=== PATIENT | female | born 1965 | race Caucasian/White ===

== ENCOUNTER 2017-11-04 13:34 | Day surgery (SDC) | payer OTHER ==
[2017-11-04] MEDS ORDERED: KETOROLAC 30 MG/1 ML SDV IVP ONE (14:42)
[2017-11-04] MEDS ORDERED: NS 1,000 ML IV ONE (14:42)
[2017-11-04] MEDS ORDERED: ONDANSETRON 4 MG/2 ML VIAL IVP ONE (14:42)
[2017-11-04] MEDS ORDERED: LR 1,000 ML IV ONE (15:01)
[2017-11-04] MEDS ORDERED: KETOROLAC 30 MG/1 ML SDV ONE (15:12)
[2017-11-04] MEDS ORDERED: BUPIVACAINE/EPI 0.5% 30 ML SDV ONE (15:41)
--- NOTE | 2017-11-04 15:45 | POSTOPPROG ---
<Trey Duffy - Last Filed: 11/04/17 17:07> Post Op Note Date of Operation: 11/04/17 Surgeon: Trey Duffy Post-op Diagnosis: acute cholecystitis, umbilical hernia Procedure: laparasopic cholecystectomy, umbilical hernia with 1.7"ventralux mesh <Faviola Avila - Last Filed: 11/08/17 07:46> Post Op Note Date of Operation: 11/08/17 Surgeon: Faviola Avila Ammonia Worker: Faviola Avila Anesthesia: GET(General Endotracheal) Pre-op Diagnosis: acute cholecystitis Post-op Diagnosis: acute cholecystitis Procedure: laparasopic cholecystectomy Findings: small stones and small duct Inf/Abcess present in the surg proc area at time of surgery?: No EBL: Minimal Complications: no current complications Specimen(s): gallbladder
[2017-11-04] MEDS ORDERED: MIDAZOLAM 2 MG/2 ML VIAL ONE (15:46)
[2017-11-04] MEDS ORDERED: SCOPOLAMINE HYDROBROMIDE 1 MG/3 DAYS PATCH TD ONE ×2 (15:46→15:52)
--- NOTE | 2017-11-04 15:47 | PDANEPAE ---
ANE History of Present Illness laparoscopic cholecystectomy ANE Past Medical History - Cardiovascular History Hx Hypertension: No Hx Arrhythmias: No Hx Chest Pain: No Hx Coronary Artery / Peripheral Vascular Disease: No Hx Palpitations: No - Pulmonary History Hx COPD: No Hx Asthma/Reactive Airway Disease: No Hx Recent Upper Respiratory Infection: Yes Hx Oxygen in Use at Home: No Hx Sleep Apnea: No Pulmonary History Comment: recent URI - Neurologic History Hx Cerebrovascular Accident: Yes Neurologic History Comment: migraines - Endocrine History Hx Diabetes: No Hypothyroid: No Hyperthyroid: No - Renal History Hx Renal Disorders: No - Liver History Hx Hepatic Disorders: No - Neurological & Psychiatric Hx Hx Neurological and Psychiatric Disorders: Yes Neurological / Psychiatric History Comment: Chronic migranes - Cancer History Hx Cancer: No - Congenital Disorder History Hx Congenital Disorders: No - GI History GERD: mild (occassionally) Hx Gastrointestinal Disorders: Yes Gastrointestinal History Comment: IBS ANE Review of Systems Review of Systems: - Exercise capacity METS (RN): 4 METS ANE Patient History - Allergies Allergies/Adverse Reactions: banana [Banana] Allergy (Verified 04/16/11 09:11) MIGRAINES benzoyl peroxide Allergy (Verified 11/04/17 15:30) ALMONDS Allergy (Uncoded 04/16/11 09:10) MIGRAINES RONDON Allergy (Uncoded 04/16/11 09:10) Diarrhea HARD BEANS Allergy (Uncoded 04/16/11 09:11) MIGRAINES ORANGES Allergy (Uncoded 04/16/11 09:12) MIGRAINES tape Allergy (Uncoded 11/04/17 15:29) - NPO status NPO Since - Liquids (Date): 11/04/17 NPO Since - Liquids (Time): 09:00 NPO Since - Solids (Date): 11/04/17 NPO Since - Solids (Time): 07:00 - Anes Hx Anes Hx: post operative nausea - Smoking Hx Smoking Status: Never smoked Marijuana use: No - Alcohol Use Alcohol Use: None - Family Anes Hx Family Anes Hx: none ANE Labs/Vital Signs - Vital Signs Blood Pressure: 150/96 Heart Rate: 80 Respiratory Rate: 16 O2 Sat (%): 99 Height: 170.18 cm Weight: 91.626 kg ANE Physical Exam - Airway Neck exam: FROM Mallampati Score: Class 1 Mouth exam: normal dental/mouth exam - Pulmonary Pulmonary: clear to auscultation - Cardiovascular Cardiovascular: regular rate and rhythym - ASA Status ASA Status: II ANE Anesthesia Plan Anesthesia Plan: general endotracheal anesthesia
[2017-11-04] MEDS ORDERED: MIDAZOLAM 2 MG/2 ML VIAL IVP ONE (15:52)
[2017-11-04] MEDS ORDERED: DEXAMETHASONE 4 MG/ML VIAL ONE (16:01)
[2017-11-04] MEDS ORDERED: RANITIDINE 50 MG/2 ML VIAL ONE (16:01)
[2017-11-04] MEDS ORDERED: PROPOFOL 200 MG/20 ML VIAL ONE ×2 (16:01)
[2017-11-04] MEDS ORDERED: fentaNYL 250 MCG/5 ML INJ ONE (16:01)
[2017-11-04] MEDS ORDERED: ROCURONIUM 50 MG/5 ML VIAL ONE (16:01)
[2017-11-04] MEDS ORDERED: LABETALOL HCL 5 MG/ML 20 ML MDV ONE (16:43)
[2017-11-04] MEDS ORDERED: ONDANSETRON 4 MG/2 ML VIAL ONE (16:47)
[2017-11-04] MEDS ORDERED: LABETALOL HCL 5 MG/ML 20 ML MDV IVP PRN (16:51)
[2017-11-04] MEDS ORDERED: ACETAMINOPHEN 500 MG TAB PO PRN (16:51)
[2017-11-04] MEDS ORDERED: oxyCODONE IR 5 MG TAB PO PRN (16:51)
[2017-11-04] MEDS ORDERED: NALOXONE HCL 0.4 MG/ML INJ IVP PRN (16:51)
[2017-11-04] MEDS ORDERED: PROMETHAZINE HCL 25 MG/ML INJ IVP PRN (16:51)
[2017-11-04] MEDS ORDERED: fentaNYL 100 MCG/2 ML INJ IVP PRN (16:51)
[2017-11-04] MEDS ORDERED: HYDROCODONE/APAP 5/325 TAB PO PRN (16:51)
[2017-11-04] MEDS ORDERED: SUGAMMADEX SODIUM 200 MG/2 ML VIAL IVP ONE (17:08)
--- NOTE | 2017-11-04 17:24 | GOP ---
[f rep st] OPERATIVE REPORT DATE OF OPERATION: 11/04/2017 SURGEON: Trey Duffy MD TYPE PROOF REPRODUCER: Faviola Avila PA-C. ANESTHESIA: General. ANESTHESIOLOGIST: Dr. Doe. PREOPERATIVE DIAGNOSIS: Cholecystitis. POSTOPERATIVE DIAGNOSIS: Cholecystitis, umbilical hernia. PROCEDURE PERFORMED: 1. Laparoscopic cholecystectomy. 2. Umbilical herniorrhaphy. FINDINGS: See below. INDICATIONS: 51-year-old female with a 5-day history of progressively worsening right upper quadrant pain. Clinical exam is consistent with acute cholecystitis. She is undergoing a laparoscopic cholecystectomy at this time. Risks and benefits were explained of bleeding, infection, open conversion, bile duct injury, retained stone, potential for postoperative ERCP. All questions were answered. She desires to proceed. A surgical services tech is standard and necessary and customary for the safe performance of this procedure. DESCRIPTION OF PROCEDURE: General anesthesia was induced. The abdomen was preinjected with 0.5% Marcaine with epinephrine. A curvilinear infraumbilical incision was created. A pre-existing umbilical hernia not clinically appreciated was present. The hernia sac was divided at its fascial expansion. A 2 cm defect with omentum was present. The fat was reduced back toward the abdominal cavity. The sac was cleared back to healthy-appearing fascial edges. A 10 mm trocar was placed under direct visualization. Three additional 5 mm upper abdominal ports were inserted. The gallbladder was retracted cephalad. This was a mildly edematous structure. Both duct and artery were circumferentially encompassed, confirming the critical view of safety. The duct was multiply clipped and divided with the ultrasonic dissector, as was the artery. The gallbladder was peeled from the liver bed fossa and brought through umbilical port site intact using EndoCatch pouch. Satisfactory hemostasis was assured. The umbilical fascia was noted to be completely attenuated and not felt to have a satisfactory integrity for primary closure. A 1.7 inch Ventralex mesh was inserted subfascially and the defect closed transversely with a running Vicryl suture. The umbilicus was retacked to the abdominal wall fascia. The wound was closed in layers with absorbable sutures followed by Dermabond. The patient was taken to recovery uneventfully. /[id number]/MODL MTDD
[2017-11-04] MEDS ORDERED: fentaNYL 100 MCG/2 ML INJ ONE (17:43)
[2017-11-04] MEDS ORDERED: oxyCODONE IR 5 MG TAB ONE (17:44)
[2017-11-04 18:10] VITALS: BP 120/83
--- NOTE | 2017-11-05 08:29 | POSTANESTH ---
Post Anesthetic Evaluation Cardiovascular Status: Normal, Stable Respiratory Status: Normal, Stable Level of Consciousness/Mental Status: Can Participate in Eval Pain Control: Adequate, Prn Tx Ordered Nausea/Vomiting Control: Adequate, Prn Tx Ordered Complications Possibly Related to Anesthesia: None Noted
== END 2017-11-04 18:54 | disposition home or self-care (01) ==
LOC: FSGY 13:34
PROVIDERS: ATTEND Surgery
DX: K81.0 Acute cholecystitis (principal); K42.9 Umbilical hernia without obstruction or gangrene; G43.909 Migraine, unspecified, not intractable, without status migrainosus; K21.9 Gastro-esophageal reflux disease without esophagitis
CPT/HCPCS: C1781; J1100; J1885; J2250; J2405; J2704; J2780; J3010

== ENCOUNTER → 2017-12-07 | Outpatient (CLI) | payer OTHER | LOC: BRMIMAGING 13:04 | PROVIDERS: ATTEND Obstetrics & Gynecology | DX: Z12.31 Encounter for screening mammogram for malignant neoplasm of breast (principal) ==